=== PATIENT | female | born 1970 | race Caucasian/White ===

== ENCOUNTER 2018-02-17 08:50 | Day surgery (SDC) | payer BC ==
[2018-02-14 08:16] VITALS: BMI 27.2
[2018-02-17 09:35] VITALS: O2SAT 100
[2018-02-17] MEDS ORDERED: Propofol 10 mg/ml Inj (20 ML) ONE (10:01)
[2018-02-17] MEDS ORDERED: Morphine 4 MG/ML VIAL ONE (10:01)
[2018-02-17] MEDS ORDERED: Midazolam 2 MG/2 ML VIAL ONE (10:02)
[2018-02-17] MEDS ORDERED: ceFAZolin 1 gm in NS 1 GM/100 ML BAG IVPB ONE (10:36)
[2018-02-17] MEDS ORDERED: HYDROmorphone 0.5 mg/0.5 ml ISec IVP PRN (10:54)
[2018-02-17] MEDS ORDERED: Lactated Ringer's 1,000 ML IV ONE (12:30)
[2018-02-17 12:59] VITALS: RESP 16
[2018-02-17 14:09] VITALS: BP 112/71; PULSE 73; TEMP 97.5
--- NOTE | 2018-03-02 05:08 | OP ---
PROCEDURE DATE: 02/17/2018 NATURE OF OPERATION: Dilatation and curettage and hysteroscopy. ATTENDING SURGEON: Bassam Gonzalez MD OPERATING SURGEON: Bassam Gonzalez MD APPRENTICE MACHINIST OUTSIDE: Jose G Griffith DO KIND OF ANESTHESIA: General. PREOPERATIVE DIAGNOSIS: Menometrorrhagia. FINDINGS: On pelvic examination under anesthesia, the external genitalia was normal, vagina was parous. The cervix was inflamed with cervical erosion. The uterus was top normal size directed posteriorly and sounded to 3.5 inches in depth with a smooth cavity, and a moderate amount of polypoid endometrial tissue obtained. DESCRIPTION OF PROCEDURE: Under general anesthesia, the patient in dorsal lithotomy position, she was prepped, draped and catheterized in the usual sterile manner. A heavy weighted speculum was placed on the posterior vaginal vault and with the help of a Villa speculum, the anterior lip of the cervix was grasped via tenaculum. The uterus was sounded and found to be retroverted to a depth of 3.5 inches. Serial dilatation of the cervix was done with Hanks dilator up to #18. The hysteroscopic instrument was inserted and with sorbitol, the uterine cavity was distended. The endometrial cavity was visualized. Then, the hysteroscope was removed, and further dilatation of the cervix was done with a Valerio dilator up to #20. This was followed by a sharp clockwise curettage of the endometrial cavity which was productive of a moderate amount of polypoid endometrial tissue. The cavity was noted to be smooth. The patient tolerated the procedure well and was sent to recovery room in satisfactory condition. Bassam Gonzalez MD
== END 2018-02-17 14:08 | disposition home or self-care (01) ==
LOC: C.SDS 08:50
PROVIDERS: ATTEND Obstetrics & Gynecology Gynecology
DX: N92.1 Excessive and frequent menstruation with irregular cycle (principal); D25.9 Leiomyoma of uterus, unspecified
CPT/HCPCS: 58558; 88305; J0690; J1885; J2250; J2405; J2704; J3010; J7120